=== PATIENT | female | born 1955 | race Asian ===

== ENCOUNTER 2019-08-16 19:17 | Emergency (ER) | payer BC, OTHER ==
[~2019-08-16] VITALS: Ht 162.6 cm; Wt 59.9 kg
--- NOTE | 2019-08-16 19:28 | NUR ---
[id number] FROM HOME FOR SEIZURE, LAST SEIZURE IN JUNE, MIDAZOLAM 2.5MG GIVEN PER EMS. BG 169 PER EMS. PT TO BED 5, -SOB, NAD NOTED, PENDING MD REAVES
[2019-08-16 20:07] LABS: BASOPHILS # (AUTO) 0.1 /CMM (0.0-0.2); BASOPHILS % (AUTO) 1.2 % (0.0-2.0); EOSINOPHILS % (AUTO) 0.8 % (0.0-6.0); HEMATOCRIT 35 % (33-45); LYMPHOCYTES # (AUTO) 1.5 /CMM (0.8-4.8); MEAN CORPUSCULAR HGB CONC 34 g/dl (31.0-36.0); MEAN CORPUSCULAR VOLUME 87 fL (82-100); MONOCYTES # (AUTO) 0.3 /CMM (0.1-1.30); MONOCYTES % (AUTO) 3.1 % (2.0-12.0); NEUTROPHILS # (AUTO) 7.4 /CMM (1.8-8.9); NEUTROPHILS % (AUTO) 78.9 % (43.0-81.0); PLATELET COUNT (AUTO) 325 /CMM (150-450); RED BLOOD CELL COUNT(AUTO) 4.05 MIL/uL (4.0-5.2); WHITE BLOOD COUNT (AUTO) 9.4 K/uL (4.3-11.0)
[2019-08-16 20:22] LABS: CALCIUM, SERUM 9.2 mg/dL (8.5-10.1); CREATININE 0.9 mg/dL (0.6-1.3); POTASSIUM 3.9 mmol/L (3.5-5.1)
[2019-08-16 20:27] LABS: PHENYTOIN (DILANTIN) 0.5 ug/ml (10.0-20.0)
[2019-08-16 20:30] LABS: ALBUMIN 3.8 g/dL (3.4-5.0); BILIRUBIN,DIRECT 0.1 mg/dL (0.0-0.2); BILIRUBIN,TOTAL 0.2 mg/dL (0.2-1.0); TOTAL PROTEIN, SERUM 7.8 g/dL (6.4-8.2)
--- NOTE | 2019-08-16 23:18 | NUR ---
Patient discharged to home in stable condition. Written and verbal after care instructions given. Patient verbalizes understanding of instruction. IV removed. Catheter intact and site benign. Pressure and 4x4 applied to site. No bleeding noted.
[2019-08-16 23:26] VITALS: BP 112/60
== END 2019-08-16 23:29 | disposition home or self-care (01) ==
LOC: ER 19:18
DX: R56.9 Unspecified convulsions (principal); R51 Headache; I10 Essential (primary) hypertension; Z95.0 Presence of cardiac pacemaker
CPT/HCPCS: 36415; 70450-TC; 80048-TC; 80076-TC; 80164-TC; 80184; 80185-TC; 85025-TC; 85730-TC